=== PATIENT | male | born 1955 | race Caucasian/White ===

== ENCOUNTER 2019-01-15 16:07 | Emergency (ER) | payer MEDICARE, OTHER ==
--- NOTE | 2019-01-15 17:01 | Emergency Department Record ---
History of Present Illness - General Chief complaint: Allergic Reaction Stated complaint: ALLEGIC REACTION Time Seen by Provider: 01/15/19 16:51 Source: Patient Mode of Arrival: Ambulatory Limitations: No limitations - History of Present Illness Initial Comments: The patient is here due to having a reaction to Niacin an hour ago. He took it accidentally and then soon developed a red rash and itching all over. He had no TALON, SOB, trouble swallowing or breathing. The patient does not normally take Niacin. Presently he is doing better and the rash is now gone and the itching has resolved. MD Complaint: Allergic reaction Onset/Timin -: Minutes(s) Exposure: Other Symptoms: Other Severity: Mild Treatment Prior to Arrival: None Previous Allergy History: None - Related Data Home Medications Medication Instructions Recorded Confirmed Last Taken Amlodipine Besylate [Norvasc] 5 mg PO DAILY 01/15/19 01/15/19 Unknown Atorvastatin Calcium [Lipitor] 10 mg PO QHS 01/15/19 01/15/19 Unknown Loratadine/Pseudoephedrine 1 each PO DAILY 01/15/19 01/15/19 Unknown [Allergy Relief D-24Hr Tablet] Losartan Potassium [Cozaar] 100 mg PO DAILY 01/15/19 01/15/19 Unknown Previous Rx's Medication Instructions Recorded Prednisone [Prednisone 20Mg] 40 mg PO DAILY #6 tab 01/15/19 Allergies Allergy/AdvReac Type Severity Reaction Status Date / Time No Known Drug Allergies Allergy Verified 01/15/19 16:16 Travel Screening - Travel/Exposure Within Last 30 Days Have you traveled within the last 30 days?: No Review of Systems Constitutional: Denies: Chills, Fever Eyes: Denies: Eye discharge ENT: Denies: Congestion Respiratory: Denies: Cough, Dyspnea Past Medical History - SOCIAL HISTORY Smoking Status: Never smoker Alcohol Use: None Drug Use: None - RESPIRATORY Hx Respiratory Disorders: Yes Comment:: sarcoidosis - CARDIOVASCULAR Hx Cardio Disorders: Yes Comment:: murmur - NEURO Hx Neuro Disorders: No - GI Hx GI Disorders: No - Hx Genitourinary Disorders: Yes Hx Kidney Stones: Yes - ENDOCRINE Hx Endocrine Disorders: No - MUSCULOSKELETAL Hx Musculoskeletal Disorders: No - PSYCH Hx Psych Problems: No Family Medical History Any Significant Family History?: No Physical Exam - General General Appearance: Alert, Oriented x3, Cooperative, No acute distress - Head Head exam: Atraumatic, Normocephalic, Normal inspection - Eye Eye exam: Normal appearance, PERRL, EOMI - ENT Throat exam: Normal inspection. negative: Tonsillar erythema, Tonsillar exudate - Neck Neck exam: Normal inspection, Full ROM. negative: Tenderness - Respiratory Respiratory exam: Normal lung sounds bilaterally. negative: Respiratory distress - Cardiovascular Cardiovascular Exam: Regular rate, Normal rhythm, Normal heart sounds - GI/Abdominal GI/Abdominal exam: Soft, Normal bowel sounds. negative: Tenderness - Extremities Extremities exam: Normal inspection, Full ROM, Normal capillary refill. negative: Tenderness - Neurological Neurological exam: Alert, Normal gait. negative: Abnormal gait, Motor sensory deficit - Skin Skin exam: negative: Rash Course Vital Signs 01/15/19 16:12 Temperature 97.4 F L Pulse Rate 67 Respiratory 20 Rate Blood Pressure 147/90 Pulse Ox 97 - Reevaluation(s) Reevaluation #1: The patient is doing a lot better at this time. He no longer is itching or has hot skin and his rash is gone. The patient has no TALON, SOB, or any trouble swallowing or breathing and is ready for home. 01/15/19 17:44 Disposition Disposition: Discharge Clinical Impression: Adverse reaction to niacin Qualifiers: Encounter type: initial encounter Qualified Code(s): T46.7X5A - Adverse effect of peripheral vasodilators, initial encounter Disposition: Home, Self-Care Condition: (2) Stable Instructions: Adverse Drug Reaction (ED) Additional Instructions: Please use Benadryl for itching and continue the Prednisone. Please do not take any Niacin again. Please return to the ER for any worsening symptoms. Prescriptions: Prednisone [Prednisone 20Mg] 40 mg PO DAILY #6 tab Forms: Patient Portal Access Time of Disposition: 17:46 Quality - Quality Measures Quality Measures: N/A - Blood Pressure Screening View Details: Yes Does Patient Have Any of the Following: Active Dx of HTN Blood Pressure Classification: Hypertensive Reading Systolic Measurement: 147 Diastolic Measurement: 90 Screening for High Blood Pressure: Patient Exclusion, Hx of HTN [[id number]]
[2019-01-15] MEDS: PREDNISONE 20 MG TAB PO ONE (17:08)
== END 2019-01-15 17:52 | disposition home or self-care (01) ==
LOC: ER 16:07
DX: L27.0 Generalized skin eruption due to drugs and medicaments taken internally (principal); T46.7X5A Adverse effect of peripheral vasodilators, initial encounter; I10 Essential (primary) hypertension
CPT/HCPCS: 99282; J7512

== ENCOUNTER 2019-12-27 18:57 | Emergency (ER) | payer MEDICARE, OTHER | END 2019-12-27 19:21 | disposition left against medical advice (07) | LOC: ER 18:57 | DX: Z53.20 Procedure and treatment not carried out because of patient's decision for unspecified reasons (principal) ==